=== PATIENT | female | born 1985 | race African-American/Black ===

== ENCOUNTER 2024-03-20 18:30 | Emergency (ER) | payer OTHER ==
[~2024-03-20] VITALS: Ht 170.2 cm; Wt 97.7 kg
[2024-03-20 18:53] VITALS: TEMP 97.8
[2024-03-20 20:42] LABS: BASOPHILS % (AUTO) 0.6 % (0.0-2.0); EOSINOPHILS % (AUTO) 2.5 % (1.0-6.0); HEMATOCRIT 30.6 % (36-46); HEMOGLOBIN 9.4 g/dL (12.0-16.0); LYMPHOCYTES # (AUTO) 1.7 K/uL (1.0-4.8); LYMPHOCYTES % (AUTO) 25.1 % (22.0-44.0); MEAN CORPUSCULAR HEMOGLOBIN 23.3 pg (26.0-34.0); MEAN CORPUSCULAR HGB CONC 30.7 G/dL (31.0-37.0); MEAN CORPUSCULAR VOLUME 76 fL (80-100); MONOCYTES # (AUTO) 0.5 K/uL (0.1-1.0); MONOCYTES % (AUTO) 7.4 % (2.0-9.0); NEUTROPHILS # (AUTO) 4.4 K/uL (1.8-7.7); NEUTROPHILS % (AUTO) 64.4 % (40.0-70.0); PLATELET COUNT (AUTO) 281 K/uL (150-450); RED BLOOD CELL COUNT(AUTO) 4.04 MIL/uL (4.00-5.20); RED CELL DISTRIBUTION WIDTH 17.9 % (11.5-14.5); WHITE BLOOD COUNT (AUTO) 6.9 K/uL (4.5-11.0)
[2024-03-20 20:51] LABS: ANION GAP 7 mmol/L (8-16); CALCIUM, TOTAL 8.6 mg/dL (8.8-10.5); CARBON DIOXIDE 27 mmol/L (22-29); CHLORIDE 105 mmol/L (98-107); CREATININE 0.88 mg/dL (0.60-1.30); GLOMERULAR FILTR. RATE CALC > 60 mL/min (>60); GLUCOSE,RANDOM 89 mg/dL (70-110); POTASSIUM 3.5 mmol/L (3.5-5.1); SODIUM SERUM 139 mmol/L (136-145); UREA NITROGEN, BLOOD 9 mg/dL (7-18)
[2024-03-20] MEDS: MAG HYDROX/ALUMINUM HYD/SIMETH 30 ML SUSPENSION UDCUP PO ONE (20:54)
[2024-03-20] MEDS: FAMOTIDINE 20 MG TABLET PO ONE (20:55)
[2024-03-20] MEDS: ACETAMINOPHEN 500 MG TABLET PO ONE (20:55)
[2024-03-20 20:59] LABS: PLATELET MORPHOLOGY COMMENT LARGE PLTS PRESENT; RBC MORPHOLOGY COMMENT ABNORMAL RBC MORPH
[2024-03-20 21:01] LABS: ALANINE AMINOTRANSFERASE 21 U/L (12-78); ALBUMIN 3.1 g/dL (3.4-5.0); ALKALINE PHOSPHATASE 84 U/L (46-116); ASPARTATE AMINOTRANSFERASE 19 U/L (15-37); BILIRUBIN,TOTAL 0.3 mg/dL (0.1-1.0); TOTAL PROTEIN, SERUM 7.3 g/dL (6.4-8.2); TROPONIN I-HIGH SENSITIVITY 4 ng/L (<51)
[2024-03-20 22:25] LABS: CREATINE KINASE, TOTAL ONLY 294 U/L (26-192)
[2024-03-20 22:53] VITALS: BP 145/99; PULSE 75; RESP 16; O2SAT 98
== END 2024-03-20 23:14 | disposition home or self-care (01) ==
LOC: EMS 18:30
DX: R20.2 Paresthesia of skin (principal); R07.9 Chest pain, unspecified
CPT/HCPCS: 71045; 80048; 80076; 82550; 84484; 84703; 85025; 85379; 93005; 99285; 36415-L1; 36415-TC

== ENCOUNTER 2024-11-29 21:42 | Emergency (ER) | payer OTHER ==
[~2024-11-29] VITALS: Ht 167.6 cm; Wt 75.0 kg
[2024-11-29 21:45] VITALS: BP 151/106; PULSE 104; RESP 16; TEMP 98.1; O2SAT 100
[2024-11-29 22:36] LABS: PLATELET COUNT (AUTO) 279 K/uL (150-450); RED BLOOD CELL COUNT(AUTO) 4.09 MIL/uL (4.00-5.20); RED CELL DISTRIBUTION WIDTH 18.7 % (11.5-14.5); WHITE BLOOD COUNT (AUTO) 6.3 K/uL (4.5-11.0)
[2024-11-29 22:39] LABS: CALCIUM, TOTAL 8.8 mg/dL (8.8-10.5); CREATININE 0.99 mg/dL (0.60-1.30); GLOMERULAR FILTR. RATE CALC > 60 mL/min (>60); GLUCOSE,RANDOM 100 mg/dL (70-110); SODIUM SERUM 139 mmol/L (136-145); UREA NITROGEN, BLOOD 10 mg/dL (7-18)
[2024-11-29 22:45] LABS: TROPONIN I-HIGH SENSITIVITY 5 ng/L (<51)
[2024-11-30] MEDS: IBUPROFEN 400 MG TABLET PO ONE (00:59)
[2024-11-30] MEDS: ACETAMINOPHEN 500 MG TABLET PO ONE (00:59)
== END 2024-11-30 01:08 | disposition home or self-care (01) ==
LOC: EMS 21:42
DX: R07.89 Other chest pain (principal); I10 Essential (primary) hypertension
CPT/HCPCS: 71045; 80048; 84484; 85025; 93005; 99285; 36415-L1; 36415-TC

== ENCOUNTER 2025-01-28 09:52 | Emergency (ER) | payer OTHER ==
[~2025-01-28] VITALS: Ht 167.6 cm; Wt 81.0 kg
[2025-01-28 10:02] VITALS: TEMP 99.3
[2025-01-28] MEDS: ACYCLOVIR 200 MG CAPSULE PO ONE (11:03)
[2025-01-28 11:19] LABS: PLATELET COUNT (AUTO) 268 K/uL (150-450); RED BLOOD CELL COUNT(AUTO) 3.86 MIL/uL (4.00-5.20); RED CELL DISTRIBUTION WIDTH 19.4 % (11.5-14.5); WHITE BLOOD COUNT (AUTO) 4.8 K/uL (4.5-11.0)
[2025-01-28 11:22] LABS: RBC MORPHOLOGY COMMENT ABNORMAL RBC MORPH
[2025-01-28 11:27] LABS: CALCIUM, TOTAL 8.8 mg/dL (8.8-10.5); CREATININE 0.79 mg/dL (0.60-1.30); GLOMERULAR FILTR. RATE CALC > 60 mL/min (>60); GLUCOSE,RANDOM 95 mg/dL (70-110); SODIUM SERUM 138 mmol/L (136-145); UREA NITROGEN, BLOOD 11 mg/dL (7-18)
[2025-01-28 11:34] LABS: COVID AG,FIA SOURCE NASAL SWAB
[2025-01-28 12:12] LABS: INFLUENZA TYPE A NEGATIVE FOR TYPE A (NEGATIVE); INFLUENZA TYPE B NEGATIVE FOR TYPE B (NEGATIVE); SARS-COV2 (COVID) ANTIGEN,FIA Negative (Negative)
[2025-01-28 12:13] VITALS: BP 107/68; PULSE 83; RESP 21; O2SAT 98
[2025-01-28] MEDS ORDERED: PRED-554 PO (14:21)
[2025-01-28] MEDS ORDERED: ACYC-138 PO (14:22)
[2025-01-28] MEDS: MINERAL OIL/PETROLATUM,WHITE PF 3.5 GM OPHTHALMIC OINTMENT OS ONE (14:34)
== END 2025-01-28 14:44 | disposition home or self-care (01) ==
LOC: EMS 09:52
DX: G51.0 Bell's palsy (principal); D64.9 Anemia, unspecified; I10 Essential (primary) hypertension; Z98.890 Other specified postprocedural states; Z20.822 Contact with and (suspected) exposure to COVID-19
CPT/HCPCS: 99285; 71045; 87426; 80048; 85025; 87804; 36415; 93005; J7512